=== PATIENT | female | born 1960 | race Caucasian/White ===

== ENCOUNTER → 2020-01-16 | Outpatient (CLI) | payer BC, OTHER ==
--- NOTE | 2020-01-16 20:40 | Diagnostic Imaging Report ---
EXAM: Digital mammogram bilateral screening COMPARISON: This study was compared to the prior exams of 12/17/2015 and 03/02/2015. There are no current complaints. FINDINGS: The fibroglandular tissue in both breasts is heterogeneously dense. This does limit the sensitivity of this exam. The prior study did note multiple rounded densities in both breasts. The subsequent bilateral breast ultrasound exam of12/17/2015 also revealed multiple bilateral simple and mildly complicated cysts. On this exam, the rounded densities in the left breast do seem much less conspicuous than on the prior exam. There are still a few small rounded densities present. There also appears to be a small rounded density still evident in the 12 o'clock position of the right breast at anterior depth on the MLO view. In the interval since the prior study, a few thinly calcified rounded densities have developed in the upper outer aspect of the left breast. These may be secondary to fat necrosis. On the MLO view of the right breast there are a few punctate densities overlying the pectoralis muscle. These cannot be identified with certainty on the craniocaudad view. In retrospect these may been present on the prior exam although they are better visualized on this study. I would recommend that a compression view / magnification view of this area be obtained in the MLO projection as well as an XCC view of the right breast for further study. There is no primary or secondary sign of malignancy noted otherwise. IMPRESSION: Additional mammographic views of the right breast would be recommended for further study. ACR BI-RADS Category 0: Incomplete. (Needs additional imaging evaluation). Result letter will be mailed to the patient. Note: At least 10% of breast cancer is not imaged by mammography. Dictated by: Dictated on workstation # [id number]
== END ==
LOC: RAD 14:50
PROVIDERS: ATTEND Nurse Practitioner Community Health
DX: Z12.31 Encounter for screening mammogram for malignant neoplasm of breast (principal)
CPT/HCPCS: 77063; 77067

== ENCOUNTER → 2020-01-30 | Outpatient (CLI) | payer BC ==
--- NOTE | 2020-01-30 14:04 | Diagnostic Imaging Report ---
INDICATION: Right breast calcifications. Patient presents for additional views. COMPARISON: Recent screening mammograms from 01/16/2020 as well as 12/17/2015. TECHNIQUE: Unilateral right 2D and 3D diagnostic mammography was performed. Views included CC, exaggerated CC, magnification MLO, conventional 90 degree lateral, as well as cleavage CC view and spot compression CC view. FINDINGS: There is a cluster of indeterminate microcalcifications in the upper far posterior right breast, best seen on the ML views. These appear to be slightly medial or at the nipple line on the CC view and far posterior. These can only be seen on the spot compression view. No associated soft tissue mass is identified. These do appear to be increased in number when compared to the prior mammograms. IMPRESSION: Indeterminate cluster of microcalcifications in the upper far posterior right breast. These appear to be at the nipple line or slightly medial. Tissue sampling would be recommended. ACR BI-RADS Category 4: Suspicious abnormality. Result letter will be mailed to the patient. Note: At least 10% of breast cancer is not imaged by mammography. Dictated by: Dictated on workstation # [id number]
== END ==
LOC: RAD 12:32
PROVIDERS: ATTEND Nurse Practitioner Community Health
DX: R92.0 Mammographic microcalcification found on diagnostic imaging of breast (principal)
CPT/HCPCS: 77065; G0279

== ENCOUNTER → 2020-02-09 | Outpatient (CLI) | payer BC ==
[~2020-02-09] MED LIST: LIDOCAINE 1% INJ 20 ML 20 ML VIAL ONE
--- NOTE | 2020-02-09 08:34 | NUR ---
PATIENT PROCEDURE CANCELLED DUE TO UNABLE TO VIEW CALCIFICATIONS ON MAMMOGRAM. SEE DR. CASTELLON DICTATION.
== END ==
LOC: RAD 07:27
PROVIDERS: ATTEND Nurse Practitioner Community Health
DX: R92.8 Other abnormal and inconclusive findings on diagnostic imaging of breast (principal); Z53.8 Procedure and treatment not carried out for other reasons